=== PATIENT | female | born 1945 | race Caucasian/White ===

== ENCOUNTER → 2018-01-29 08:31 | Outpatient (CLI) | payer MEDICARE, OTHER, SELFPAY ==
--- NOTE | 2018-01-29 08:44 | BI_ITS ---
MAMMOGRAPHY - BILATERAL SCREENING REASON FOR EXAM: Female, 72 years old. Routine annual screening examination. PERTINENT HISTORY: Non-contributory. History of prior left stereotactic breast biopsy. TECHNIQUE: Digital bilateral breast sundeep (3D mammographic acquisition) in the CC and MLO projections. 2-D mediolateral oblique (MLO) and craniocaudad (CC) views of both breasts were obtained. CAD: Full Field Digital Mammography with Computer Added Detection was performed. COMPARISON: Comparison is made with prior examination dated January 09, 2017 and January 09, 2016. FINDINGS: Breast Composition: There are scattered areas of fibroglandular density. There are no dominant masses or suspicious calcifications. No other significant abnormalities are identified. There has been no significant change since the prior study. BI/SCREENING MAMM (CAD), BILAT IMPRESSION: Stable bilateral screening mammogram. Yearly follow-up mammogram recommended. (A) ASSESSMENT CATEGORY: BIRADS Category 1: Negative. A letter regarding these results will be sent to the patient by the facility within 30 days. Approximately 10% of breast cancers are not detected by mammography. A normal mammogram should not delay biopsy of a clinically suspicious abnormality. [id number] Electronically Signed: Arturo Pelaez MD at 9:11 EST Tel [phone], Service support ,
== END ==
PROVIDERS: Family Provider Internal Medicine; PCP Internal Medicine; Visit Provider Obstetrics & Gynecology
DX: Z12.31 Encounter for screening mammogram for malignant neoplasm of breast (principal)
CPT/HCPCS: 77063; 77067

== ENCOUNTER → 2018-07-27 10:48 | Outpatient (CLI) | payer MEDICARE, OTHER, SELFPAY ==
--- NOTE | 2018-07-27 10:55 | BD_ITS ---
STUDY: DUAL ENERGY X-RAY ABSORPTIOMETRY / DXA REASON FOR EXAM: Female, 72 years old. The patient is postmenopausal. No loss of height. TECHNIQUE: Bone Mineral Density (BMD) measurements of lumbar spine and bilateral hips were obtained. COMPARISON: Comparison is made with prior study dated July 23, 2016. FINDINGS: Lumbar Spine (L1-L4): g/cm2 (0.936) / T-score (-2.0) / Z-score (-0.3) Findings are suggestive of osteopenia with a moderate fracture risk. Left Femur Total: g/cm2 (0.851) / T-score (-1.2) / Z-score (0.3) Left Femoral Neck: g/cm2 (0.847) / T-score (-1.4) / Z-score (0.4) Right Femur Total: g/cm2 (0.903) / T-score (-0.8) / Z-score (0.7) Right Femoral Neck: g/cm2 (0.844) / T-score (-1.4) / Z-score (0.4) The T-Scores on the most recent prior examination were: Lumbar Spine (L1-L4): There has been worsening of bone density since the previous examination. Left Femur Total: which represents a worsening of 7.7%. Right Femur Total: which represents a worsening of 2.8%. BD/Dexa Bone Density Study IMPRESSION: The patient is considered osteopenic as outlined below according to World Christiano Organization (WHO) criteria with a moderate fracture risk. There has been worsening of bone density since the previous examination. Reference Information: The T-score is the number of standard deviations above or below the standard which is normal for young adults at their peak bone mineral density. The World Health Organization (WHO) interprets the T-scores as follows: Above -1 Normal bone density Between -1 and -2.5 Osteopenia Equal to / or below -2.5 Osteoporosis As a practical clinical guideline, osteopenia may be graded as follows: Mild -1 through -1.5 Moderate -1.6 through -2.0 Severe -2.1 through -2.4 The Z-score is the number of standard deviations above or below age-matched controls. A Z-score of less than -1.5 would be considered abnormal. References: 1. NIH Osteoporosis and Related Bone Diseases http://www.osteo.org 2. International Society for Clinical Densitometry http://www.iscd.org 3. National Osteoporosis Foundation http://www.nof.org Electronically Signed: Arturo Pelaez, at 14:26 EDT , Service support ,
== END ==
PROVIDERS: Family Provider Internal Medicine; PCP Internal Medicine; Referring Provider Internal Medicine; Visit Provider Internal Medicine
DX: Z78.0 Asymptomatic menopausal state (principal)
CPT/HCPCS: 77080

== ENCOUNTER → 2019-02-07 15:07 | Outpatient (CLI) | payer MEDICARE, OTHER, SELFPAY ==
--- NOTE | 2019-02-07 15:13 | BI_ITS ---
MAMMOGRAPHY - BILATERAL SCREENING 3-D TOMOSYNTHESIS REASON FOR EXAM: Female, 73 years old. Routine annual screening examination. PERTINENT HISTORY: History of left stereotactic biopsy in 1995. TECHNIQUE: 2-D mammograms and 3-D Tomosynthesis of the breast (s) were performed. CAD was performed. COMPARISON: January 29, 2018, January 09, 2017 FINDINGS: The breast composition is almost entirely fat. Scattered benign calcifications are seen. No dense spiculated masses or suspicious microcalcifications are identified. No architectural distortion is identified. There is no skin thickening or retraction. There has been no significant change since the prior study. BI/SCREEN MAMM (CAD) W/HUSEYIN BILAT IMPRESSION: No mammographic signs of malignancy. Routine yearly mammograms recommended. ASSESSMENT CATEGORY: BIRADS Category 2: Benign. A letter regarding these results will be sent to the patient by the facility within 30 days. FOLLOW UP RECOMMENDATION: Yearly follow up mammogram recommended. (A) Approximately 10% of breast cancers are not detected by mammography. A normal mammogram should not delay biopsy of a clinically suspicious abnormality. Electronically Signed: Jose De Jesus Mace MD at 17:42 EST , Service support ,
== END ==
PROVIDERS: Family Provider Internal Medicine; PCP Internal Medicine; Referring Provider Obstetrics & Gynecology; Visit Provider Obstetrics & Gynecology
DX: Z12.31 Encounter for screening mammogram for malignant neoplasm of breast (principal)
CPT/HCPCS: 77063; 77067

== ENCOUNTER → 2020-03-02 08:00 | Outpatient (CLI) | payer MEDICARE, OTHER, SELFPAY ==
--- NOTE | 2020-03-02 08:03 | BI_ITS ---
MAMMOGRAPHY - BILATERAL SCREENING REASON FOR EXAM: Female, 74 years old. Routine annual screening examination. PERTINENT HISTORY: Non-contributory. Remote left stereotactic breast biopsy. TECHNIQUE: Digital bilateral breast huseyin (3D mammographic acquisition) in the CC and MLO projections. 2-D mediolateral oblique (MLO) and craniocaudad (CC) views of both breasts were obtained. CAD: Full Field Digital Mammography with Computer Added Detection was performed. COMPARISON: Comparison is made with prior study dated 02/07/2019 and 01/29/2018. FINDINGS: Breast Composition: There are scattered areas of fibroglandular density. There are no dominant masses or suspicious calcifications. No other significant abnormalities are identified. There has been no significant change since the prior study. BI/SCREEN MAMM (CAD) W/HUSEYIN BILAT IMPRESSION: Stable bilateral screening mammogram. Yearly follow-up mammogram recommended. (A) ASSESSMENT CATEGORY: BIRADS Category 1: Negative. A letter regarding these results will be sent to the patient by the facility within 30 days. Approximately 10% of breast cancers are not detected by mammography. A normal mammogram should not delay biopsy of a clinically suspicious abnormality. [id number] Electronically Signed: Arturo Pelaez, at 8:50 EST , Service support ,
== END ==
PROVIDERS: PCP Internal Medicine; Referring Provider Student in an Organized Health Care Education/Training Program; Visit Provider Student in an Organized Health Care Education/Training Program
DX: Z12.31 Encounter for screening mammogram for malignant neoplasm of breast (principal)
CPT/HCPCS: 77063; 77067

== ENCOUNTER 2020-04-18 15:00 | Outpatient (RCR) | payer MEDICARE, OTHER, SELFPAY ==
--- NOTE | 2020-03-20 09:55 | HP.PTEVAL_ITS ---
Patient's Visit Information MARIBEL BLACKWELL is a 74 year old F referred to Physical Therapy by Dr. Aby Sneed DO with a diagnosis of hip pain R/R greater trochanteric. Date of Evaluation: 03/20/20 Physical Therapist: MARYSOL Stapleton - Visit Plan Frequency: 2x /Week Duration: 4 Weeks Plan: 2X/ week for 4 weeks for US and possible some MT to the R greater trochanter, stretching of B HS, Glut, piriformis, strengthening of the R hip and light core stability to compliment the hips, stair negotiation, with HEP - Subjective Pt has R hip pain... hard to pinpoint. She feels that she has been sitting too much. She feels taht her R leg is shorter and she hobbles the first few steps and then she seems to get better. The transitionfrom sitting to standing, going up stairs (2 feet to a stairs), she has increase pain. It has been going on about a year.... started in Mar last year... was not notivced it as much in the summer but the last month or so it has gotten worse. X-rays were taken and it was normal. - Pain R hip pain Pain Intensity (Out of 10): 0 Pain Intensity Range: 3 - Objective Gait: walks with normal gait pattern with evidence of hip hip weakness wtih increase R hip dropping. Pt also had increase R hip drop when walking on her heels. LE MMT: R hip flex 4-/5 and L 4/5, R hip abd 4-/5 and L 4+/5, B hip ext 4/5, B knee flex and knee ext 4/5. Pt was able to heel and toe walk. Patellar DTR's 2+/3. Palpation: Tender R piriformis and R greater trochanter compared to the L. Good HS flex. Slightly tight gastroc complex B - Goals Goal 1:: I HEP Goal Time Frame: 4-6 Weeks Goal 2:: Decrease R hip pain to 0/10 with going up and down the stairs and going from a seated to a standing position Goal Time Frame: 4-6 Weeks Goal 3:: Increase LE strength by 1/2 muscle grade (at time of eval: LE MMT: R hip flex 4-/5 and L 4/5, R hip abd 4-/5 and L 4+/5, B hip ext 4/5, B knee flex and knee ext 4/5). Goal Time Frame: 4-6 Weeks - Rehabilitation Potential Rehabilitation Potential: Good - Anticipated Interventions Patient/Client Instruction: Educate patient on: Condition, Plan of Care For the Purpose of:: To decrease pain, To increase ROM, To improve nutrient delivery to tissue, To increase oxygenation perfusion, To improve muscle performance and motor function, To improve ability to perform ADL's, To increase tolerance to activity/condition/position, To improve performance and independence with ADL's, To decrease level of supervision to perform tasks, To improve ability of physical actions for home/community/work/leisure, To improve gait and locomotor functions, To improve health of tissue, To decrease soft tissue restriction, To increase flexibility/ROM Therapeutic Exercise to Include: Strength training, Flexibilty training, Gait and locomotor training, Passive ROM, Active ROM, Dynamic Lumbar Stabilization For the Purpose of:: To decrease pain, To increase ROM, To improve nutrient delivery to tissue, To improve muscle performance and motor function, To improve ability to perform ADL's, To increase tolerance to activity/condition/position, To improve performance and independence with ADL's, To improve ability of physical actions for home/community/work/leisure, To improve gait and locomotor functions, To improve health of tissue, To decrease soft tissue restriction, To increase flexibility/ROM Manual Therapy Techniques to Include: Passive ROM, Soft tissue mobilization For the Purpose of:: To decrease pain, To decrease swelling/inflammation, To increase ROM, To improve nutrient delivery to tissue, To improve muscle performance and motor function, To improve ability to perform ADL's, To increase tolerance to activity/condition/position, To improve performance and independence with ADL's, To improve gait and locomotor functions, To improve health of tissue, To decrease soft tissue restriction, To increase flexibility/ROM Thermo therapy (hot pack): Yes Ultrasound (thermal/non thermal): Yes For the Purpose of:: To decrease pain, To decrease swelling/inflammation, To increase ROM, To improve nutrient delivery to tissue Thank you for the opportunity to evaluate your patient. For Medicare and Medicare HMO plans, please review the plan of care and approve it. It will need to be FAXED BACK to us at [phone] for Medicare purposes. For Medicare only, by signing this I certify the plan of care. Please let me know if there are questions or concerns regarding this plan of care. Physician Signature: Date:
--- NOTE | 2020-04-18 15:40 | HP.PTDCSUM ---
It has been my pleasure to treat MARIBEL BLACKWELL referred by Dr. Aby Sneed DO, with the diagnosis of hip pain R/R greater trochanteric for a total of 9 visit(s). Discharge Date: 04/18/20 Please see the following information for a summary of their discharge status. Subjective: Pt got an pneumonia booster shot and was really achy for 2 days. She did not do her exercises. She feels that her legs are bigger, She fasted all Thursday... she says she is down 3# since Thursday. B hip lateral sides of hips are bothering her. It is better when she gets up from the couch and not as stiff as before. HEP: Seated piriformis , Hip ER stretch, ab barace with ankles, SKC, EOB hip flexor stretch, Bridges with band around knees (blue). Pt feels that she can be done and do HEP at home. Stairs are going better at home. R hip pain Pain Intensity (Out of 10): 2 R rib pain Pain Intensity (Out of 10): 0 % Improvement: 80 Objective/Function: R hip MMT: hip flex 4/5, Hip abd 4/5, Knee flex and ext 4+/5. Gait: no antalgic gait present. Reviewed HEP.... Goal 1:: I HEP Goal Progress: Goal Met Goal 2:: Decrease R hip pain to 0/10 with going up and down the stairs and going from a seated to a standing position Goal Progress: Progressing Goal 3:: Increase LE strength by 1/2 muscle grade (at time of eval: LE MMT: R hip flex 4-/5 and L 4/5, R hip abd 4-/5 and L 4+/5, B hip ext 4/5, B knee flex and knee ext 4/5). Goal Progress: Goal Met Plan: 2X/ week for 4 weeks for US and possible some MT to the R greater trochanter, stretching of B HS, Glut, piriformis, strengthening of the R hip and light core stability to compliment the hips, stair negotiation, with HEP Discharge Comments: DC PT to HEP. Pt is able to come back if she is not feeling she is progressing. She will contact her Dr. If there are questions or concerns regarding this patient's physical therapy, please feel free to call me at [phone]. Thank you for the referral of this patient. Sincerely, Jenny Cedillo, MPT
== END 2020-04-18 19:00 | disposition home or self-care (01) ==
LOC: PT 15:00
PROVIDERS: PCP Internal Medicine; Referring Provider Internal Medicine; Visit Provider Internal Medicine
DX: M70.61 Trochanteric bursitis, right hip (principal); Y93.9 Activity, unspecified
CPT/HCPCS: 97035; 97110; 97161; 97530

== ENCOUNTER → 2020-07-31 10:56 | Outpatient (CLI) | payer MEDICARE, OTHER, SELFPAY ==
--- NOTE | 2020-07-31 11:02 | BD_ITS ---
STUDY: DUAL ENERGY X-RAY ABSORPTIOMETRY / DXA REASON FOR EXAM: Female, 74 years old. M85.89 TECHNIQUE: Bone Mineral Density (BMD) measurements of lumbar spine and bilateral hips were obtained. COMPARISON: 07/27/2018 FINDINGS: Lumbar Spine (L1-L4): g/cm2 (0.949) / T-score (-1.9) / Z-score (-0.2) Findings are suggestive of osteopenia with a moderate fracture risk. Left Femur Total: g/cm2 (0.863) / T-score (-1.1) / Z-score (0.5) Left Femoral Neck: g/cm2 (0.806) / T-score (-1.7) / Z-score (0.2) Right Femur Total: g/cm2 (0.855) / T-score (-1.2) / Z-score (0.5) Right Femoral Neck: g/cm2 (0.848) / T-score (-1.4) / Z-score (0.5) BD/Dexa Bone Density Study IMPRESSION: The patient is considered osteopenic as outlined below according to World Christiano Organization (WHO) criteria with a moderate fracture risk. There has been no change of bone density since the previous examination. Reference Information: The T-score is the number of standard deviations above or below the standard which is normal for young adults at their peak bone mineral density. The World Health Organization (WHO) interprets the T-scores as follows: Above -1 Normal bone density Between -1 and -2.5 Osteopenia Equal to / or below -2.5 Osteoporosis As a practical clinical guideline, osteopenia may be graded as follows: Mild -1 through -1.5 Moderate -1.6 through -2.0 Severe -2.1 through -2.4 The Z-score is the number of standard deviations above or below age-matched controls. A Z-score of less than -1.5 would be considered abnormal. References: 1. NIH Osteoporosis and Related Bone Diseases www osteo.org 2. International Society for Clinical Densitometry www iscd.org 3. National Osteoporosis Foundation www nof.org Electronically Signed: Simeon Chan MD at 8:51 EDT Tel , Service support ,
== END ==
PROVIDERS: PCP Internal Medicine; Referring Provider Student in an Organized Health Care Education/Training Program; Visit Provider Student in an Organized Health Care Education/Training Program
DX: M85.9 Disorder of bone density and structure, unspecified (principal); Z78.0 Asymptomatic menopausal state
CPT/HCPCS: 77080

== ENCOUNTER → 2020-11-27 15:41 | Outpatient (CLI) | payer MEDICARE, OTHER, SELFPAY ==
--- NOTE | 2020-11-27 15:43 | RAD_ITS ---
STUDY: X-RAY - RIGHT ANKLE REASON FOR EXAM: Female, 75 years old. PAIN TECHNIQUE: 3 view(s) of the ankle. COMPARISON: None. FINDINGS: Minimal fragmentation at the inferior aspect of the lateral malleolus may represent a subtle nondisplaced fracture in the appropriate clinical setting. There is mild associated soft tissue swelling. The remainder the visualized osseous structures are intact. RAD/Ankle min 3 Views IMPRESSION: Minimal fragmentation at the inferior aspect of the lateral malleolus may represent a subtle nondisplaced fracture in the appropriate clinical setting. Electronically Signed: Jesus Oates MD at 19:08 EDT Tel , Service support ,
== END ==
PROVIDERS: PCP Internal Medicine; Referring Provider Nurse Practitioner; Visit Provider Nurse Practitioner
DX: M25.571 Pain in right ankle and joints of right foot (principal)
CPT/HCPCS: 73610

== ENCOUNTER → 2021-03-14 10:02 | Outpatient (CLI) | payer MEDICARE, OTHER, SELFPAY ==
--- NOTE | 2021-03-14 10:04 | BI_ITS ---
MAMMOGRAPHY - BILATERAL SCREENING 3-D TOMOSYNTHESIS REASON FOR EXAM: Female, 75 years old. SCREENING PERTINENT HISTORY: No significant family history. TECHNIQUE: 2-D mammograms and 3-D Tomosynthesis of the breast (s) were performed. CAD was performed. COMPARISON: 03/02/2020 FINDINGS: The breast composition is heterogeneously dense that can obscure small breast masses. Scattered benign calcifications are seen. No dense spiculated masses or suspicious microcalcifications are identified. No architectural distortion is identified. There is no skin thickening or retraction. There has been no significant change since the prior study. BI/SCRN MAMM (CAD)W/HUSEYIN BILAT IMPRESSION: No mammographic signs of malignancy. Routine yearly mammograms recommended. ASSESSMENT CATEGORY: BIRADS Category 1: Negative. A letter regarding these results will be sent to the patient by the facility within 30 days. FOLLOW UP RECOMMENDATION: Yearly follow up mammogram recommended. (A) Approximately 10% of breast cancers are not detected by mammography. A normal mammogram should not delay biopsy of a clinically suspicious abnormality. Electronically Signed: Simeon Chan MD at 11:16 EST Tel , Service support ,
== END ==
PROVIDERS: PCP Internal Medicine; Referring Provider Student in an Organized Health Care Education/Training Program; Visit Provider Student in an Organized Health Care Education/Training Program
DX: Z12.31 Encounter for screening mammogram for malignant neoplasm of breast (principal)
CPT/HCPCS: 77063; 77067

== ENCOUNTER 2022-02-12 10:00 | Outpatient (RCR) | payer MEDICARE, OTHER, SELFPAY ==
--- NOTE | 2021-12-23 12:32 | HP.PTEVAL_ITS ---
Patient's Visit Information MARIBEL BLACKWELL is a 76 year old F referred to Physical Therapy by Dr. Aby Sneed DO with a diagnosis of LIA KNEE PAIN. Date of Evaluation: 12/23/21 Physical Therapist: Kenzie Thomason PT, Cert MDT - Visit Plan Frequency: 2-3x /Week Duration: 4-6 Weeks Plan: AQUATIC THERAPY FOR GAIT TRAINING, CORE STRENGTHENING, LIA LE ROM, STRETCHING AND STRENGTHENING. HEP INSTRUCTION. - Subjective Work/Leisure: RETIRED. Disability: NO. Present symptoms: MY RIGHT KNEE IS OK NOW. SHE REPORTS SHE IS HAVING LEFT MEDIAL KNEE PAIN (POINTING TO PROXIMAL L MEDIAL LEG). PATIENT DENIES LIA LE NUMBNESS AND TINGLING. Present since: ABOUT 4 WEEKS AGO. GOT BETTER WITH STRETCHES OVER THE WEEKEND THEN A WEEK AGO THURSDAY WENT TO AN EX CLASS AND THURSDAY CARRIED PUMPKINS THEN L KNEE FLARED UP AGAIN. ALSO DID STAIRS AND LIFTED A SEWING MACHINE. RIGHT KNEE HURT TOO BUT IT GOT BETTER. DID HAVE LOW BACK PAIN A FEW WEEKS AGO BUT NOT REALLY HURTING ANYMORE. Pain Scale: WORST 9/10, LEAST 0/10. Currently: 0/10. Commenced as a result of: NO APPARENT REASON OTHER THAN CARRYING THINGS UP AND DOWN THE STAIRS A LOT. Symptoms at onset: LIA KNEE ACHING. Worse: STANDING UP AND TRYING TO WALK, KICKING LEG OUT STRAIGHT, HASN'T TRIED STEPS (HAS A RAMP). Better: SITTING. Disturbed sleep: SOMETIMES. Previous history/Previous treatment: UNREMARKABLE. Treatment This Episode: PRESCRIBED M. RELAXER AND MALOXACAM BUT DO NOT SEEM TO BE HELPING. Coughing/sneezing/straining: NO. Gait: HAS BEEN USING A WALKER FOR ABOUT 3 DAYS FOR PAIN RELIEF AND STABILITY. NO FALLS. Bowel or Bladder Dysfunction: NO. Accidents: NO. Unexplained weight loss: NO. Imaging: RECENT LIA KNEE AND LUMBAR X-RAYS - SEE [facility] EMR. PMH/Recent major surgery: UNREMARKABLE. OTHER: LIVES IN RANCH WITH A BASEMENT. - Objective Sitting/Standing Posture: FAIR. MILD SCOLIOSIS ON IMAGING. Other Observations: THIS PATIENT AMBULATES INDEP'LY INTO PT TODAY WITH A FWW AND DECREASED CADANCE AND MILD LIMP ON LLE. UE DEPENDENT TO TRANSFER FROM SIT TO STAND. DIFFICULTY INITIATING GAIT AFTER SITTING AND IMPROVES WITH TIME AND DISTANCE. PATIENT DEMO'S PROPER USE OF WALKER. Sensory deficit: LIA LE LIGHT TOUCH SENSATION IS GROSSLY INTACT AND SYMMETRICAL. ROM deficit: RIGHT KNEE ROM IN SUPINE WITH A HEEL SLIDE = FULL EXT TO 130 DEG FLEXION. L KNEE: FULL EXT TO 120 DEG FLEXION. TIGHT LIA HS'S AND GASTROC SOLEUS COMPLEX'S. Motor deficit: RIGHT LE: HIP 4/5, KNEE 4/5, ANKLE 5/5. LEFT LE: HIP 4-/5, KNEE EXT 4-/5, KNEE FLEX 3-/5, ANKLE 5/5. Dural Signs: NEGATIVE LIA LE'S. Core strength: POOR. Palpation: MILD LEFT KNEE SWELLING COMPARED TO RIGHT BUT NO ACUTE TENDERNESS OF LIA KNEES INCLUDING PROXIMAL LEG ON LEFT WHERE PATIENT HAS C/O PAIN WITH WALKING. OTHER: SEE TUG AND 30 STS TEST RESULTS BELOW. - Balance/Special Test Scores Lower Extremity Functional Score: 24 TUG Test Time Seconds: 15.54 30 Second Chair Rise Test Seconds: 10 - Goals Goal 1:: DECREASE C/O LEFT KNEE AND MEDIAL PROXIMAL KNEE PAIN. Goal Time Frame: 4-6 Weeks Goal 2:: IMPROVE FUNCTIONAL ROM OF L KNEE TO EASE ADL'S. Goal Time Frame: 4-6 Weeks Goal 3:: INCREASE LIA LE STRENGTH TO EASE ADL'S. Goal Time Frame: 4-6 Weeks Goal 4:: INDEP AND SAFE GAIT ON LEVEL SURFACES AND UP AND DOWN STEPS TO HELP RETURN TO PRIOR LEVEL OF FUNCTION Goal Time Frame: 4-6 Weeks Goal 5:: PATIENT WILL BE INDEP WITH A HEP FOR CONTINUED IMPROVEMENT ONCE FORMAL PHYSICAL THERAPY CONCLUDES. Goal Time Frame: 4-6 Weeks - Anticipated Interventions Patient/Client Instruction: Educate patient on: Condition, Plan of Care, Risk Factors For the Purpose of:: To improve self management Therapeutic Exercise to Include: Strength training, Flexibilty training, Gait and locomotor training, Neuromotor development, In an aquatic setting For the Purpose of:: To decrease pain, To increase ROM, To improve muscle performance and motor function, To increase tolerance to activity/condition/position, To improve ability of physical actions for home/community/work/leisure, To improve gait and locomotor functions Cryotherapy (ice pack, ice massage): Yes Thermo therapy (hot pack): Yes Ultrasound (thermal/non thermal): Yes For the Purpose of:: To decrease pain, To improve nutrient delivery to tissue Thank you for the opportunity to evaluate your patient. For Medicare and Medicare HMO plans, please review the plan of care and approve it. It will need to be FAXED BACK to us at [phone] for Medicare purposes. For Medicare only, by signing this I certify the plan of care. Please let me know if there are questions or concerns regarding this plan of care. Physician Signature: Date:
--- NOTE | 2022-01-13 10:58 | HP.PTREVAL_ITS ---
Dr. Aby Rodriguez, DO, It has been my pleasure to treat MARIBEL BLACKWELL over the last 10 visits for LIA KNEE PAIN. Please see the progress note below for an update on the physical therapy plan of care! Subjective: PATIENT REPORTS SHE CAN WALK AROUND WITHOUT THE WALKER NOW. NO LONGER TAKING M. RELAXER OR ANTI-INFLAMMATORY FOR ABOUT A WK OR WK AND A HALF NOW. WENT UP AND DOWN 2 FLIGHTS OF STEPS AT [employer] OVER THE WEEKEND, WENT TO A QUILT SHOW AND ALSO DID SOME GARDENING. SHE REPORTS SHE WENT UP AND DOWN THE STEPS NORMALLY AND THAT WAS THE FIRST TIME SHE HAS DONE THAT MANY STEPS IN AWHILE. PATIENT REPORTS SHE HAD A SHOT BY DR. RODRIGUEZ AFTER FIRST TWO PT VISITS. PATIENT REPORT SHE IS STILL GETTING INTERMITTENT LEFT MEDIAL KNEE/LEG PAIN BUT IT IS GENERALLY NOT THERE WHEN SHE SITS AND BETTER OVER-ALL. PATIENT DENIES NECK AND LOW BACK PAIN. PATIENT DENIES ANY CHANGES IN BOWEL OR BLADDER FUNCTION. PATIENT EXPRESSING CONCERNS ABOUT PAIN BEING LINKED TO LUNG CANCER AND THIS PT recommended PHYSICIAN FOLLOW UP TO ADDRESS THIS CONCERN. Objective/Function: PATIENT WAS SEEN TODAY FOR RE-ASSESSMENT OF PROGRESS TOWARD THE SET PT GOALS AND THE NEED FOR FURTHER PHYSICAL THERAPY VS READINESS FOR DISCHARGE. UPON EXAM TODAY: THIS PATIENT AMBULATES INDEP'LY INTO PT TODAY WITH GOOD SYMMETRICAL CADANCE AND NO ASSISTIVE DEVICE. SHE IS ABLE TO TRANSFER INDEP'LY FROM SIT TO STAND WITHOUT UE ASSIST. Sensory deficit: LIA LE LIGHT TOUCH SENSATION IS GROSSLY INTACT AND SYMMETRICAL. ROM deficit: RIGHT KNEE ROM IN SUPINE WITH A HEEL SLIDE = FULL EXT TO 126 DEG FLEXION. L KNEE: FULL EXT TO 122 DEG FLEXION. PATIENT DENIES INCREASED PAIN WITH KNEE ROM TESTING. Motor deficit: RIGHT LE: HIP 4/5, KNEE 4/5, ANKLE 5/5. LEFT LE: HIP 4/5, KNEE 4/5, ANKLE 5/5. PATIENT DENIES INCRASED PAIN WITH MMT'ING. Dural Signs: NEGATIVE LIA LE'S. Core strength: FAIR. Palpation: NO ACUTE TENDERNESS OF LIA KNEES INCLUDING PROXIMAL LEG ON LEFT WHERE PATIENT HAS C/O PAIN WITH WALKING. NO ACUTE LUMBAR TENDERNESS. OTHER: MUCH IMPROVED TUG AND 30 STS TEST RESULTS - SEE BELOW. LUMBAR MVMT LOSS: FLEX - NIL. EXT - MOD. R SG - MOD. L SG - MOD. PATIENT DENIES ANY INCREASED LLE PAIN WITH LUMBAR ROM TESTING ALL PLANES. OTHER: PATIENT DENIES INCREASED PAIN WITH LIA HEEL RAISE TESTING. THE ONLY TIME PATIENT REPORTS INCREASED PAIN IS WITH WEIGHT BEARING IN STANDING AND WALKING BUT ABLE TO SLS LLE WITH ONLY C/O OF MILD INCREASED PAIN. PATIENT APPEARS TO BE A GOOD CANDIDATE TO CONTINUE AQUATIC THERAPY INDEP'LY ONCE A WEEK AND ATTMEPT TO TRANSFER TO LAND THERAPY 2X'S A WK. PATIENT IS AGREEABLE. Plan Plan: PT 2X'S A WK FOR GAIT TRAINING, CORE STRENGTHENING, LIA LE ROM, STRETCHING AND STRENGTHENING. HEP INSTRUCTION. PATIENT AGREEABLE AND PRESENT THROUGHOUT SESSION TODAY. Balance/Gait/Functional tests - Balance/Special Test Scores Lower Extremity Functional Score: 47 TUG Test Time Seconds: 8.01 Tug Test: <10 sec.=free mobile 30 Second Chair Rise Test Seconds: 13 Goals Goal 1:: DECREASE C/O LEFT KNEE AND MEDIAL PROXIMAL KNEE PAIN. Goal Time Frame: 4-6 Weeks Goal Progress: Progressing Goal 2:: IMPROVE FUNCTIONAL ROM OF L KNEE TO EASE ADL'S. Goal Time Frame: 4-6 Weeks Goal Progress: Progressing Goal 3:: INCREASE LIA LE STRENGTH TO EASE ADL'S. Goal Time Frame: 4-6 Weeks Goal Progress: Progressing Goal 4:: INDEP AND SAFE GAIT ON LEVEL SURFACES AND UP AND DOWN STEPS TO HELP RETURN TO PRIOR LEVEL OF FUNCTION Goal Time Frame: 4-6 Weeks Goal Progress: Progressing Goal 5:: PATIENT WILL BE INDEP WITH A HEP FOR CONTINUED IMPROVEMENT ONCE FORMAL PHYSICAL THERAPY CONCLUDES. Goal Time Frame: 4-6 Weeks Goal Progress: Progressing Anticipated Interventions Patient/Client Instruction: Educate patient on: Condition, Plan of Care, Risk Factors For the Purpose of:: To improve self management Therapeutic Exercise to Include: Strength training, Flexibilty training, Gait and locomotor training, Neuromotor development, In an aquatic setting For the Purpose of:: To decrease pain, To increase ROM, To improve muscle performance and motor function, To increase tolerance to activity/condition/position, To improve ability of physical actions for home/community/work/leisure, To improve gait and locomotor functions Cryotherapy (ice pack, ice massage): Yes Thermo therapy (hot pack): Yes Ultrasound (thermal/non thermal): Yes For the Purpose of:: To decrease pain, To improve nutrient delivery to tissue Please do not hesitate to contact me at [phone] by phone or if you have questions or concerns regarding this new plan of care! Sincerely, Kenzie Thomason, PT, Cert MDT
--- NOTE | 2022-02-12 11:40 | HP.PTDCSUM ---
It has been my pleasure to treat MARIBEL BLACKWELL referred by Dr. Aby Sneed DO, with the diagnosis of LIA KNEE PAIN for a total of 18 visit(s). Discharge Date: Please see the following information for a summary of their discharge status. Subjective: PATIENT REPORTS SHE IS A LOT BETTER. SILVER SNEAKER MEMBER AND LIKES POOL EX'S BETTER THAN LAND BUT DID OK WITH MACHINES. LLE Pain Intensity (Out of 10): 1 % Improvement: 99 Objective/Function: PATIENT WAS SEEN TODAY FOR RE-ASSESSMENT OF PROGRESS TOWARD THE SET PT GOALS AND THE NEED FOR FURTHER PHYSICAL THERAPY VS READINESS FOR DISCHARGE. UPON EXAM TODAY: THIS PATIENT AMBULATES INDEP'LY INTO PT TODAY WITH GOOD SYMMETRICAL CADANCE AND NO ASSISTIVE DEVICE. SHE IS ABLE TO TRANSFER INDEP'LY FROM SIT TO STAND WITHOUT UE ASSIST. ROM deficit: RIGHT KNEE ROM IN SUPINE WITH A HEEL SLIDE = FULL EXT TO 128 DEG FLEXION. L KNEE: FULL EXT TO 127 DEG FLEXION. PATIENT DENIES INCREASED PAIN WITH KNEE ROM TESTING. PATIENT DEMO'S INDEP GAIT UP AND DOWN STEPS X 1 FLIGHT reciprocally WITHOUT HANDRAIL. SHE IS NOW INDEP WITH BOTH GYM AND WATER EX PROGRAMS AND IS APPROPRIATE FOR DISCHARGE. PATIENT IS AGREEABLE. Goal 1:: DECREASE C/O LEFT KNEE AND MEDIAL PROXIMAL KNEE PAIN. Goal Progress: Goal Met Goal 2:: IMPROVE FUNCTIONAL ROM OF L KNEE TO EASE ADL'S. Goal Progress: Goal Met Goal 3:: INCREASE LIA LE STRENGTH TO EASE ADL'S. Goal Progress: Goal Met Goal 4:: INDEP AND SAFE GAIT ON LEVEL SURFACES AND UP AND DOWN STEPS TO HELP RETURN TO PRIOR LEVEL OF FUNCTION Goal Progress: Goal Met Goal 5:: PATIENT WILL BE INDEP WITH A HEP FOR CONTINUED IMPROVEMENT ONCE FORMAL PHYSICAL THERAPY CONCLUDES. Goal Progress: Goal Met Plan: D/C TO INDEP LAND AND WATER EX PROGRAMS. If there are questions or concerns regarding this patient's physical therapy, please feel free to call me at [phone]. Thank you for the referral of this patient. Sincerely, Kenzie Thomason, PT, Cert MDT Balance/Gait/Functional tests - Balance/Special Test Scores Lower Extremity Functional Score: 47 TUG Test Time Seconds: 8.01 Tug Test: <10 sec.=free mobile 30 Second Chair Rise Test Seconds: 13
== END 2022-02-12 12:24 | disposition home or self-care (01) ==
LOC: PT 10:00
PROVIDERS: PCP Internal Medicine; Referring Provider Internal Medicine; Visit Provider Internal Medicine
DX: M25.561 Pain in right knee (principal); M25.562 Pain in left knee
CPT/HCPCS: 97110; 97113; 97162; 97164; 97530

== ENCOUNTER → 2022-03-18 | Outpatient (CLI) | payer MEDICARE, OTHER, SELFPAY ==
--- NOTE | 2022-03-18 09:23 | BI_ITS ---
MAMMOGRAPHY - BILATERAL SCREENING REASON FOR EXAM: Female, 76 years old. Routine annual screening examination. PERTINENT HISTORY: Non-contributory. Remote left stereotactic breast biopsy. TECHNIQUE: Digital bilateral breast huseyin (3D mammographic acquisition) in the CC and MLO projections. 2-D mediolateral oblique (MLO) and craniocaudad (CC) views of both breasts were obtained. CAD: Full Field Digital Mammography with Computer Added Detection was performed. COMPARISON: Comparison is made with prior study 03/14/2021 and 03/02/2020. FINDINGS: Breast Composition: There are scattered areas of fibroglandular density. There are no dominant masses or suspicious calcifications. Stable small benign-appearing bilateral axillary lymph nodes. No other significant abnormalities are identified. There has been no significant change since the prior study. BI/SCRN MAMM (CAD)W/HUSEYIN BILAT IMPRESSION: Stable bilateral screening mammogram. Yearly follow-up mammogram recommended. (A) ASSESSMENT CATEGORY: BIRADS Category 2: Benign. A letter regarding these results will be sent to the patient by the facility within 30 days. Approximately 10% of breast cancers are not detected by mammography. A normal mammogram should not delay biopsy of a clinically suspicious abnormality. [id number] Electronically Signed: Arturo Pelaez MD at 12:26 EST ,
== END | disposition home or self-care (01) ==
LOC: OPBI 09:20
PROVIDERS: PCP Internal Medicine; Visit Provider Internal Medicine
DX: Z12.31 Encounter for screening mammogram for malignant neoplasm of breast (principal)
CPT/HCPCS: 77063; 77067

== ENCOUNTER 2022-07-21 11:52 | Emergency (ER) | payer MEDICARE, OTHER, SELFPAY ==
[2022-07-21 11:53] VITALS: BP 175/94; PULSE 83; RESP 16; TEMP 36.3; O2SAT 100; BMI 33.8
[2022-07-21] MEDS: Diphth,Pertuss(Acell),Tet Vac 0.5 ML Vial IM (12:48)
[2022-07-21] MEDS: Lidocaine 1% (20 ml mdv) 20 ML Vial INFILT (13:10)
--- NOTE | 2022-07-21 14:05 | EDS_ITS ---
HPI History of Present Illness Chief Complaint: Laceration Narrative Narrative: Patient presents with left index finger laceration while trying to sew and cut through fabric. It does involve the radial part of the distal nail. No other injuries. Tetanus is not up-to-date [facility] Medical History (Updated 07/21/22 @ 14:[address] Bernard Man MD) No acute medical problems Home Medications NK 07/21/22 [History Last Taken Unknown] Allergy/AdvReac Type Severity Reaction Status Date / Time prednisone Allergy NEEDS Verified 07/21/22 12:20 FOLLOW-UP levofloxacin [From Levaquin] AdvReac Other Verified 07/21/22 12:23 sulfamethoxazole AdvReac Rash Verified 07/21/22 12:23 [From Bactrim] trimethoprim [From Bactrim] AdvReac Rash Verified 07/21/22 12:23 Social History Smoking Status: Never smoker ROS ROS ED ROS Narrative Past medical history: Noncontributory Medications: Reviewed Social history: Noncontributory Review of systems: Musculoskeletal: Laceration as in HPI Skin: As above Neurological: No weakness or paresthesias Hematologic: No easy bleeding or easy bruising EXAM Physical Exam Narrative Exam Narrative: Physical exam General: Patient does not appear in significant distress . Head: Normocephalic, Atraumatic Neck: No C-spine tenderness Cardiovascular: Normal distal pulses Back: Nontender, Normal Inspection. Extremities: Left index finger shows the radial side laceration of left 2.5 cm including the distal part of the nail. Normal tendon function. Skin: As above Neurological: Normal strength and sensation Const Vital Signs: 07/21/22 11:53 Temperature 97.3 F L Temperature Source Temporal Pulse Rate 83 Respiratory Rate 16 Blood Pressure 175/94 H Blood Pressure Mean 121 Pulse Ox 100 Oxygen Delivery Method Room Air MDM MDM MDM Narrative Medical decision making narrative: At this time patient does not need an x-ray the wound is relatively superficial there is no bony tenderness and normal tendon function. Tetanus was updated. Wound was sutured see procedure note. Patient tolerated procedure well. She be discharged with wound care instructions. I discussed with the who is at bedside. Procedures Lacerations Finger: Length: 0.98 in Depth: Skin Shape: Linear Prep: Gregorio-Zohra Laceration repair: Irrigated Number of Sutures/Sharee: 4 Suture Information: Ethilon, Simple and 5-0 Comment: Patient tolerated procedure well Discharge Plan Triage Chief Complaint: Laceration ED Provider: Bernard Man Dx/Rx/DC Orders Clinical Impression: Finger laceration, Tetanus toxoid vaccination administered at current visit Instructions: ED Laceration Hand with ... Prescriptions: No Action NK Primary Care Provider: Aby Sneed Referrals: Aby Sneed DO [Primary Care Provider] - 10 Day for suture removal Disposition Disposition: Home, Self Care
[2022-07-21 14:12] VITALS: RESP 18
--- NOTE | 2022-07-21 14:21 | ED.RN ---
DRESSING APPLIED TO LEFT POINTER FINGER. THIS RN APPLIED GAUZE 4X4 AND TAPE AND INSTRUCTED PT TO KEEP WOUND COVERED AND TO FOLLOW UP WITH PRIMARY CARE IN 10 DAYS FOR SUTURE REMOVAL PER DR. ANTHONY DISCHARGE INSTRUCTION.
== END 2022-07-21 14:23 | disposition home or self-care (01) ==
PROVIDERS: Emergency Provider Emergency Medicine; PCP Internal Medicine; Visit Provider Emergency Medicine
DX: S61.311A Laceration without foreign body of left index finger with damage to nail, initial encounter (principal); W26.8XXA Contact with other sharp object(s), not elsewhere classified, initial encounter; Y93.D2 Activity, sewing; Z23 Encounter for immunization
CPT/HCPCS: 12001; 90471; 90715; 99282

== ENCOUNTER → 2022-08-05 | Outpatient (CLI) | payer MEDICARE, OTHER, SELFPAY ==
--- NOTE | 2022-08-05 09:14 | BD_ITS ---
STUDY: DUAL ENERGY X-RAY ABSORPTIOMETRY / DXA REASON FOR EXAM: Female, 76 years old. [id number] TECHNIQUE: Bone Mineral Density (BMD) measurements of lumbar spine and bilateral hips were obtained. COMPARISON: Comparison is made with prior examination dated July 31, 2020. FINDINGS: Lumbar Spine (L1-L4): g/cm2 (0.816) / T-score (-2.1) / Z-score (0.3) Findings are suggestive of osteopenia with a high fracture risk. Left Femur Total: g/cm2 (0.784) / T-score (-1.3) / Z-score (0.5) Left Femoral Neck: g/cm2 (0.628) / T-score (-2.0) / Z-score (0.1) Right Femur Total: g/cm2 (0.818) / T-score (-1.0) / Z-score (0.8) Right Femoral Neck: g/cm2 (0.699) / T-score (-1.4) / Z-score (0.8) The T-Scores on the most recent prior examination were: Lumbar Spine (L1-L4): There has been worsening of bone density since the previous examination. Left Femur Total: which represents a worsening of 2.1%. Right Femur Total: which represents an improvement of 3.2%. BD/Dexa Bone Density Study IMPRESSION: The patient is considered osteopenic as outlined below according to World [employer] Organization (WHO) criteria with a high fracture risk. There has been worsening of bone density since the previous examination. Reference Information: The T-score is the number of standard deviations above or below the standard which is normal for young adults at their peak bone mineral density. The World Health Organization (WHO) interprets the T-scores as follows: Above -1 Normal bone density Between -1 and -2.5 Osteopenia Equal to / or below -2.5 Osteoporosis As a practical clinical guideline, osteopenia may be graded as follows: Mild -1 through -1.5 Moderate -1.6 through -2.0 Severe -2.1 through -2.4 The Z-score is the number of standard deviations above or below age-matched controls. A Z-score of less than -1.5 would be considered abnormal. References: 1. NIH Osteoporosis and Related Bone Diseases www osteo.org 2. International Society for Clinical Densitometry www iscd.org 3. National Osteoporosis Foundation www nof.org Electronically Signed: Arturo Pelaez MD at 10:38 EDT ,
== END | disposition home or self-care (01) ==
LOC: OPBD 09:04
PROVIDERS: PCP Internal Medicine; Referring Provider Internal Medicine; Visit Provider Internal Medicine
DX: Z78.0 Asymptomatic menopausal state (principal)
CPT/HCPCS: 77080

== ENCOUNTER → 2023-03-31 | Outpatient (CLI) | payer MEDICARE, OTHER, SELFPAY ==
--- NOTE | 2023-03-31 08:11 | BI_ITS ---
MAMMOGRAPHY - BILATERAL SCREENING REASON FOR EXAM: Female, 77 years old. Routine annual screening examination. PERTINENT HISTORY: Non-contributory. Remote left stereotactic breast biopsy. TECHNIQUE: Digital bilateral breast huseyin (3D mammographic acquisition) in the CC and MLO projections. 2-D mediolateral oblique (MLO) and craniocaudad (CC) views of both breasts were obtained. CAD: Full Field Digital Mammography with Computer Added Detection was performed. COMPARISON: Comparison is made with prior study dated March 18, 2022 and March 14, 2021. FINDINGS: Breast Composition: There are scattered areas of fibroglandular density. There are no dominant masses or suspicious calcifications. Stable small benign-appearing bilateral axillary lymph nodes. No other significant abnormalities are identified. There has been no significant change since the prior study. BI/SCRN MAMM (CAD)W/HUSEYIN BILAT IMPRESSION: Stable bilateral screening mammogram. Yearly follow-up mammogram recommended. (A) ASSESSMENT CATEGORY: BIRADS Category 2: Benign. A letter regarding these results will be sent to the patient by the facility within 30 days. Approximately 10% of breast cancers are not detected by mammography. A normal mammogram should not delay biopsy of a clinically suspicious abnormality. [id number] Electronically Signed: Arturo Pelaez MD at 9:21 EST ,
== END | disposition home or self-care (01) ==
LOC: OPBI 08:11
PROVIDERS: PCP Internal Medicine; Referring Provider Internal Medicine; Visit Provider Internal Medicine
DX: Z12.31 Encounter for screening mammogram for malignant neoplasm of breast (principal)
CPT/HCPCS: 77063; 77067

== ENCOUNTER → 2024-04-01 | Outpatient (CLI) | payer MEDICARE, OTHER, SELFPAY ==
--- NOTE | 2024-04-01 11:03 | BI_ITS ---
MAMMOGRAPHY - BILATERAL SCREENING REASON FOR EXAM: Female, 78 years old. Routine annual screening examination. PERTINENT HISTORY: Daughter with breast cancer. Remote left stereotactic breast biopsy. TECHNIQUE: Digital bilateral breast huseyin (3D mammographic acquisition) in the CC and MLO projections. 2-D mediolateral oblique (MLO) and craniocaudad (CC) views of both breasts were obtained. CAD: Full Field Digital Mammography with Computer Added Detection was performed. COMPARISON: Comparison is made with prior study dated September 29, 2023 and March 18, 2022. FINDINGS: Breast Composition: There are scattered areas of fibroglandular density. There are no dominant masses or suspicious calcifications. No other significant abnormalities are identified. There has been no significant change since the prior study. BI/SCRN MAMM (CAD)W/HUSEYIN BILAT IMPRESSION: Stable bilateral screening mammogram. Yearly follow-up mammogram recommended. (A) ASSESSMENT CATEGORY: BIRADS Category 1: Negative. A letter regarding these results will be sent to the patient by the facility within 30 days. Approximately 10% of breast cancers are not detected by mammography. A normal mammogram should not delay biopsy of a clinically suspicious abnormality. [id number] Electronically Signed: Arturo Pelaez MD at 12:24 EST ,
== END | disposition home or self-care (01) ==
LOC: OPBI 11:03
PROVIDERS: PCP Internal Medicine; Referring Provider Internal Medicine; Visit Provider Internal Medicine
DX: Z12.31 Encounter for screening mammogram for malignant neoplasm of breast (principal); Z80.3 Family history of malignant neoplasm of breast
CPT/HCPCS: 77063; 77067

== ENCOUNTER → 2024-08-09 | Outpatient (CLI) | payer MEDICARE, OTHER, SELFPAY ==
--- NOTE | 2024-08-09 09:46 | BD_ITS ---
PROCEDURE: DEXA BONE DENSITY STUDY 08/09/2024 REASON FOR EXAM: F, age 78 y/o . Postmenopausal. TECHNIQUE: DXA scan of sites with data reported below. REFERENCE LINKS: [facility] Adult Position[facility] COMPARISON: Prior study dated August 05, 2022. FINDINGS: BMD and T-SCORES Lumbar spine: 0.813 g/cm2, T-score -2.1 Levels: L1 through L4 Change from prior: Loss of 0.3%. Left femoral neck: 0.613 g/cm2, T-score -2.1 Femoral neck comparison data not recommended for monitoring change. Left total hip: 0.779 g/cm2, T-score -1.3 Change from prior: Loss of 0.7%. Right femoral neck: 0.658 g/cm2, T-score -1.7 Femoral neck comparison data not recommended for monitoring change. Right total hip: 0.791 g/cm2, T-score -1.2 Change from prior: Loss of 3.4%. The World Health Organization has defined the following categories based on bone density: Normal bone density: T-score equal to or greater than -1.0 Osteopenia: T-score between -1.0 and -2.5 Osteoporosis: T-score equal to or less than -2.5 The patient does meet the pharmacological treatment recommendations for prevention of osteoporosis. BD/Dexa Bone Density Study IMPRESSION: OSTEOPENIA. Recommend follow-up as clinically warranted. Reading Location: [place] [id number]
== END | disposition home or self-care (01) ==
LOC: OPBD 09:37
PROVIDERS: PCP Internal Medicine; Referring Provider Internal Medicine; Visit Provider Internal Medicine
DX: M19.90 Unspecified osteoarthritis, unspecified site (principal); M81.0 Age-related osteoporosis without current pathological fracture
CPT/HCPCS: 77080

== ENCOUNTER 2025-02-16 10:30 | Outpatient (RCR) | payer MEDICARE, OTHER, SELFPAY ==
--- NOTE | 2024-09-29 12:41 | HP.PTEVAL ---
Patient's Visit Information Visit Information Visit Information: RADHA BLACKWELL is a 78 year old F referred to Physical Therapy by Dr. Aby Sneed DO with a diagnosis of Mixed incontinence. Date of Evaluation: 09/29/24 Physical Therapist: Haylie Cornejo Visit Plan Frequency: 1x/Week Duration: 3 Months Plan: Radha would benefit from skilled PT intervention to address her incontinence and frequency. She has significant pelvic floor weakness and mild pelvic floor tightness which we will address with manual therapy and pelvic floor strengthening. We will also address her mild lumbar dysfunction in our sessions with the hope of improving her control and lessening her frequency. Will see her once a week. Add week 2 next visit. Continue pelvic floor releases bilaterally and work on left lumbar. How is she doing with deep breathing (good technique today). Subjective Subjective: Mixed incontinence for a couple of years. Sometimes she can have a little leaking as she is going to the restroom in the middle of the night. She usually gets up 1-3 times a night. She can feel the urgency come on quickly and then sometimes she leaks. As soon as she gets home, she can feel urgency. Hands under running water can be a trigger for her. She can leak with a big cough or sneeze. She had been wearing a pad. If she knows she is going somewhere new or will be out for a while, she will wear a pad. She is urinating once every couple hours thru the day. She has occasional low back pain, stiffness. She goes to pool classes twice a week for an hour. She drinks water mainly. 2 children and both vaginal deliveries. Forceps delivery on first delivery. Quilting and sewing is a hobby. Taking care of her home. Objective Objective: Cystocele 2-, Rectocele 1 LAYCOCK 1/ UNABLE TO HOLD CONTRACTION AND DIFFICULTY RELAXING BETWEEN CONTRACTIONS Mild pelvic floor tightness bilaterally layer 2-3 , Left rotation L2-L5 with mobs , Good pelvic alignment POPDI-6 2, YNES-6 12 Goals Goal 1:: Radha will be able to delay using the restroom by 5 minutes when an urgency comes (especially in the middle of the night). Goal Time Frame: 8-12 Weeks Goal 2:: Radha will be able to delay by 5 minutes when a urinary urge comes on with certain triggers such as a rogers in the door or hands under running water. Goal Time Frame: 6-8 Weeks Goal 3:: Radha will have to get up 0-1 times a night to allow for more restful sleep. Goal Time Frame: 4-6 Weeks Goal 4:: Radha will be on a more normal voiding schedule of urinating 5-7 times a day to allow for less disruption in her day to day activities. Goal Time Frame: 8-12 Weeks Rehabilitation Potential Physical Therapy Diagnosis: Mixed incontinence, Nocturia , Frequency of micturition Rehabilitation Potential: Good Anticipated Interventions Patient/Client Instruction: Educate patient on: Condition and Plan of Care For the Purpose of:: To improve muscle performance and motor function, To improve health and function and To improve self management Therapeutic Exercise to Include: Strength training and Relaxation training For the Purpose of:: To improve muscle performance and motor function, To improve health and function and To improve self management Manual Therapy Techniques to Include: Trigger point massage and Soft tissue mobilization For the Purpose of:: To improve health and function and To improve self management Text: Thank you for the opportunity to evaluate your patient. For Medicare and Medicare HMO plans, please review the plan of care and approve it. It will need to be FAXED BACK to us at [phone] for Medicare purposes. For Medicare only, by signing this I certify the plan of care. Please let me know if there are questions or concerns regarding this plan of care. Physician Signature: Date:
--- NOTE | 2025-02-17 17:39 | HP.PTDCSUM_ITS ---
Discharge Summary D/C summary: It has been my pleasure to treat RADHA BLACKWELL referred by Dr. Aby Sneed DO, with the diagnosis of Mixed incontinence for a total of 8 visit(s). Discharge Date: Please see the following information for a summary of their discharge status. Subjective Subjective: She feels ready for discharge. She feels 80% improved overall with her symptoms. She is not getting up as much at night (at most once now vs. 2- 3). Less leaking as well. Pain low back pain: Pain Intensity (Out of 10): 4 Objective Objective/Function: She is ready for discharge. She reports 80% improvement in her symptoms. Goals Goal 1:: Radha will be able to delay using the restroom by 5 minutes when an urgency comes (especially in the middle of the night). Goal Progress: Progressing Goal 2:: Radha will be able to delay by 5 minutes when a urinary urge comes on with certain triggers such as a rogers in the door or hands under running water. Goal Progress: Progressing Goal 3:: Radha will have to get up 0-1 times a night to allow for more restful sleep. Goal Progress: Goal Met Goal 4:: Radha will be on a more normal voiding schedule of urinating 5-7 times a day to allow for less disruption in her day to day activities. Goal Progress: Goal Met Plan Plan: D/C from PT. She has met her goals. D/C Information d/c sentence: If there are questions or concerns regarding this patient's physical therapy, please feel free to call me at [phone]. Thank you for the referral of this patient. Sincerely, Haylie Cornejo
== END 2025-02-16 19:00 | disposition home or self-care (01) ==
LOC: PT 10:30
PROVIDERS: PCP Internal Medicine; Visit Provider Internal Medicine
DX: N39.46 Mixed incontinence (principal)
CPT/HCPCS: 97110; 97112; 97140; 97162; 97530